=== PATIENT | male | born 1980 | race Caucasian/White ===

== ENCOUNTER 2020-09-03 23:56 | Emergency (ER) | payer OTHER ==
[2020-09-04 00:32] LABS: BASOPHIL 0.6 % (0-2); EOSINOPHIL 2.2 % (0-5); HCT 44.5 % (42.0-52.0); HGB 15.2 g/dl (13.2-18.0); LYMPHOCYTE 42.1 % (15-48); MCH 31.1 pg (25.0-31.0); MCHC 34.2 g/dL (32.0-36.0); MCV 91.2 fL (78.0-100.0); MONOCYTE 13.6 % (0-12); MPV 11.6 fL (6.0-9.5); NEUTROPHIL 41.1 % (41-80); NRBC 0; PLT 134 K/uL (150-400); RBC 4.88 M/uL (4.70-6.00); RDW 13.6 % (11.5-14.0); WBC 7.2 K/uL (4.0-10.5)
[2020-09-04 00:47] LABS: BUN/CREAT RATIO (CALC) 20.6 RATIO; CREATININE 1.31 mg/dL (0.67-1.17); POTASSIUM 3.6 mmol/L (3.5-5.1)
== END 2020-09-04 04:21 | disposition other institution (70) ==
LOC: FER 23:56
PROVIDERS: Emergency Medicine
DX: I21.4 Non-ST elevation (NSTEMI) myocardial infarction (principal); I45.10 Unspecified right bundle-branch block; U07.1 COVID-19; Z87.891 Personal history of nicotine dependence; Z86.19 Personal history of other infectious and parasitic diseases
CPT/HCPCS: 36415; 80048; 84484; 85025; 93005; J1644; J7030; U0002

== ENCOUNTER 2020-10-01 22:43 | Day surgery (SDCO) | payer OTHER ==
[2020-10-01 23:46] LABS: BASOPHIL 0.6 % (0-2); EOSINOPHIL 2.7 % (0-5); HCT 41.6 % (42.0-52.0); HGB 14.2 g/dl (13.2-18.0); LYMPHOCYTE 33.6 % (15-48); MCH 31.5 pg (25.0-31.0); MCHC 34.1 g/dL (32.0-36.0); MCV 92.2 fL (78.0-100.0); MONOCYTE 11.9 % (0-12); MPV 11.9 fL (6.0-9.5); NEUTROPHIL 50.7 % (41-80); NRBC 0; PLT 149 K/uL (150-400); RBC 4.51 M/uL (4.70-6.00); RDW 13.6 % (11.5-14.0); WBC 6.4 K/uL (4.0-10.5)
[2020-10-02 00:07] LABS: INR 1.19 (0.9-1.2); PROTHROMBIN TIME 14.3 SECONDS (11.4-13.6)
[2020-10-02 00:08] LABS: ALBUMIN 3.5 g/dL (3.4-5.0); BILIRUBIN - TOTAL 0.6 mg/dL (0.2-1.0); BUN/CREAT RATIO (CALC) 14.2 RATIO; CREATININE 1.62 mg/dL (0.67-1.17); D-DIMER 0.29 ug/mLFEU (0.00-0.41); GLOBULIN (CALCULATION) 3.4 g/dL; POTASSIUM 4.3 mmol/L (3.5-5.1); TOTAL PROTEIN 6.9 g/dL (6.4-8.2)
[2020-10-02 01:02] LABS: AMPHETAMINES NEGATIVE (NEGATIVE); BARBITURATES NEGATIVE (NEGATIVE); ECSTASY (MDMA) NEGATIVE (NEGATIVE); MARIJUANA (THC) NEGATIVE (NEGATIVE); METHADONE NEGATIVE (NEGATIVE); OPIATES NEGATIVE (NEGATIVE); OXYCODONE NEGATIVE (NEGATIVE)
[2020-10-02 06:46] LABS: MAGNESIUM 1.8 mg/dL (1.8-2.4)
[2020-10-02] MEDS ORDERED: INDERAL20 MG PO (21:31)
[2020-10-02] MEDS ORDERED: BUSPIRONE HCL15 MG PO (21:31)
[2020-10-02] MEDS ORDERED: PRINIVIL10 MG PO (21:32)
[2020-10-02] MEDS ORDERED: CELEXA20 MG PO (21:32)
[2020-10-02] MEDS ORDERED: TOPAMAX25 MG PO (21:34)
[2020-10-02] MEDS ORDERED: FLONASE ALLER15.8 ML (21:34)
[2020-10-02] MEDS ORDERED: PRAZOSIN HCL5 MG PO (21:36)
[2020-10-02] MEDS ORDERED: THIAMINE HCL500 MG PO (21:37)
[2020-10-02] MEDS ORDERED: COLACE100 MG PO (21:38)
[2020-10-02] MEDS ORDERED: VOLTAREN **OUT50 MG PO (21:39)
[2020-10-02] MEDS ORDERED: CYCLOBENZAPRINE10 MG PO (21:41)
[2020-10-03 06:18] LABS: HCT 40.6 % (42.0-52.0); HGB 14.3 g/dl (13.2-18.0); MCHC 35.2 g/dL (32.0-36.0); MCV 90.8 fL (78.0-100.0); MPV 11.5 fL (6.0-9.5); RBC 4.47 M/uL (4.70-6.00); RDW 13.5 % (11.5-14.0); WBC 6.1 K/uL (4.0-10.5)
[2020-10-03 06:31] LABS: BUN/CREAT RATIO (CALC) 20.5 RATIO; CREATININE 0.88 mg/dL (0.67-1.17); POTASSIUM 3.9 mmol/L (3.5-5.1)
[2020-10-03] MEDS ORDERED: HABITROL14 MG EXT (13:06)
== END 2020-10-03 14:08 | disposition home or self-care (01) ==
LOC: FER 22:43 → FMS 10-02 04:39
PROVIDERS: Emergency Medicine; Hospitalist; Nurse Practitioner; ADMIT Internal Medicine
DX: I95.9 Hypotension, unspecified (principal); U07.1 COVID-19; I10 Essential (primary) hypertension; F43.10 Post-traumatic stress disorder, unspecified; R07.9 Chest pain, unspecified; R00.1 Bradycardia, unspecified; Z86.59 Personal history of other mental and behavioral disorders; R55 Syncope and collapse; Z86.19 Personal history of other infectious and parasitic diseases; Z82.49 Family history of ischemic heart disease and other diseases of the circulatory system; Z87.898 Personal history of other specified conditions
CPT/HCPCS: 36415; 71045; 80048; 80053; 80305; 83735; 84100; 84484; 85025; 85379; 85610; 93005; 94010; G0378; J1650; U0002